=== PATIENT | male | born 1990 | race Caucasian/White ===

== ENCOUNTER 2016-10-17 10:12 | Emergency (ER) | payer OTHER ==
[~2016-10-17] VITALS: Ht 185.4 cm; Wt 72.6 kg
--- NOTE | 2016-10-17 10:44 | ED GENERAL ADULT ---
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 PT STATES HE WAS JUST DIAGNOSED WITH PANIC DISORDER. Triage Nurses Notes Reviewed? yes HPI: 26-year-old man seen for evaluation of panic attack. Patient was previously reportedly seen at [facility] complaining of chest pain where a chest x-ray, EKG, and troponin were obtained to rule out any occult pathology and all were reportedly negative. Patient was reportedly given 0.5 mg alprazolam that offered him relief of his symptoms at this time. He was then subsequently seen by his primary care provider in [place] whom diagnosed him with panic disorder and prescribed patient 0.25 mg alprazolam as needed for panic attacks. Patient reports onset of panic attack roughly 1 hour prior to ED evaluation while at work without any obvious inciting factors. At time of onset patient took 0.25 mg alprazolam which offered him no relief, for which he subsequently took another 0.25 mg alprazolam 30 minutes later. Currently he reports mild anxiety with chest discomfort and persistence of his panic attack. Otherwise he denies any fever, chills, shortness of breath, nausea, vomiting, diarrhea. (VU SOLIS MD) Vital Signs & Intake/Output Vital Signs & Intake/Output Vital Signs Date Time Temp Pulse Resp B/P Pulse O2 O2 Flow FiO2 Ox Delivery Rate 10/17 1110 Room Air Room Air 10/17 1106 98.0 80 20 118/71 98 Room Air 10/17 1018 97.9 86 16 150/90 98 Room Air Past History Travel History Traveled to [place] past 21 day No Medical History Any Pertinent Medical History? see below for history Neurological: migraine Gastrointestinal: GERD Psychiatric: PANICK ATTACKS Surgical History Surgical History: non-contributory Psychosocial History What is your primary language [place] Tobacco Use: Never used ETOH Use: denies use Illicit Drug Use: denies illicit drug use Family History Hx Contributory? No (VU SOLIS MD) Review of Systems Review of Systems Constitutional: Reports: see HPI. (VU SOLIS MD) Review of Systems Constitutional: Reports: no symptoms. EENTM: Reports: no symptoms. Respiratory: Reports: no symptoms. Cardiovascular: Reports: no symptoms. GI: Reports: no symptoms. Genitourinary: Reports: no symptoms. Musculoskeletal: Reports: no symptoms. Skin: Reports: no symptoms. Neurological/Psychological: Reports: see HPI. Hematologic/Endocrine: Reports: no symptoms. Immunologic/Allergic: Reports: no symptoms. All Other Systems: Reviewed and Negative (GRIFFIN NUNEZ MD) Physical Exam Physical Exam General Appearance: well developed/nourished, no apparent distress, alert, awake , anxious Comments: General -well-developed, anxious young man in mild distress HEENT - NCAT, PERRL, EOMI, anicteric sclera Cardio - S1, S2 w/o murmurs/gallops/rubs, regular rate and rhythm Resp - CTA bilaterally w/o wheezing/rhochi/crackles Neuro - Awake and alert, CN II - XII grossly intact, mild tremor, anxious appearance, appropriate affect Extremities - normal pulses Core Measures ACS in differential dx? No CVA/TIA Diagnosis: No Severe Sepsis Present: No Septic Shock Present: No (VU SOLIS MD) Progress Differential Diagnoses I considered the following diagnoses in my evaluation of the patient: Panic disorder Initial ED EKG: none (VU SOLIS MD) Differential Diagnoses I considered the following diagnoses in my evaluation of the patient: Plan of Care: Orders Procedure Date/time Status EKG 10/17 1056 Active Given patient's previous evaluation at [facility] for his newly diagnosed panic disorder with associated panic attacks is unlikely patient has experience any occult cardio pulmonary pathology. He denies any use of alcohol, illicit substance, or tobacco and otherwise feels well. Patient is to be given 0.5mg alprazolam and discharged to home with instruction to follow-up with his primary care provider for further evaluation of his panic attacks. (VU SOLIS MD) Departure Departure Disposition: HOME OR SELF CARE Condition: Stable Clinical Impression Primary Impression: Panic attack Referrals: SUHAIL COOPER MD (PCP/Family) Additional Instructions: Continue to take alprazolam as directed for your panic attacks. Call 911 or return to the ED should your symptoms worsen or if you develop signs of infection. Follow-up with your primary care provider in [place] for further evaluation and control of your panic attacks. Departure Forms: Customer Survey General Discharge Information (VU SOLIS MD) Resident Co-Sign Statement Statement: ED Attending supervision documentation- x I saw and evaluated the patient. I have also reviewed all the pertinent lab results and diagnostic results. I agree with the findings and the plan of care as documented in the Resident's documentation. [] I have reviewed the ED Record and agree with the Resident's documentation. [] Additions or exceptions (if any) to the Resident's note and plan are summarized below: [] (GRIFFIN NUNEZ MD) Critical Care Note Critical Care Note Critical Care Time: non-applicable (VU SOLIS MD)
[2016-10-17 11:06] VITALS: BP 118/71
== END 2016-10-17 11:12 ==
LOC: ERH 10:12
DX: F41.0 Panic disorder [episodic paroxysmal anxiety] (principal); R07.89 Other chest pain
CPT/HCPCS: 93005; 93010